=== PATIENT | female | born 1985 | race Caucasian/White ===

== ENCOUNTER → 2016-09-15 | Outpatient (REF) | payer MEDICAID ==
[~2016-09-15] MED LIST: CELE20TA OR; NO MEDS AT HOME; TRAZ50TA OR
== END ==
LOC: M LAB REF 12:43
PROVIDERS: ATTEND Advanced Practice Midwife
DX: Z34.83 Encounter for supervision of other normal pregnancy, third trimester (principal)

== ENCOUNTER 2016-09-21 13:38 | Inpatient (IN) | payer MEDICAID ==
[2016-09-21] VITALS (9 sets, daily range): BP systolic 92–109; BP diastolic 61–73
[~2016-09-21] VITALS: Ht 154.9 cm; Wt 52.0 kg
[~2016-09-21 13:38] MED LIST changes: -ACET50TA PO; -FLINCHW9 PO; -IBUP-1114 PO; -WELLTAB40 PO
[2016-09-21] MEDS ORDERED: FLINCHW9 PO (14:05)
[2016-09-21] MEDS ORDERED: LACTATED RINGER'S 1000 ML IV STA (14:19)
[2016-09-21] MEDS ORDERED: LR 1,000 ML IV SCH (14:19)
[2016-09-21] MEDS ORDERED: OXYTOCIN DRIP 30 UNITS in APPROPRIATE DILUENT 1 EA IV SCH (15:00)
[2016-09-21] MEDS ORDERED: CALCIUM CARBONATE 500 MG CHEW U/D PO PRN (19:45)
[2016-09-21] MEDS ORDERED: FENTANYL 2MCG/ML ROPIVACAINE 0.2% IN 0.9% NACL 200ML IVBAG As Ordered ONE (22:46)
[2016-09-21] MEDS ORDERED: NALOXONE INJ 0.4 MG/1 ML VIAL (J2310) IV PRN (23:45)
[2016-09-21] MEDS ORDERED: LACTATED RINGER'S 1000 ML IV PRN (23:45)
[2016-09-21] MEDS ORDERED: FENTANYL/ROPIVACAINE/NACL BAG 200 ML EPIDURAL SCH (23:45)
[2016-09-21] MEDS ORDERED: ONDANSETRON 4MG/2ML VIAL (J2405) IV PRN (23:45)
[2016-09-21] MEDS ORDERED: REFRIGERATOR IV KEYS XX PRN (23:45)
[2016-09-21] MEDS ORDERED: EPIDURAL/PCA KEYS XX PRN (23:45)
[2016-09-21] MEDS ORDERED: ePHEDrine SULFATE 25 MG/5 ML(5MG/ML) SYRINGE IV PRN (23:45)
[2016-09-21] MEDS ORDERED: diphenhydrAMINE INJ 50MG/ML VIAL (J1200) IV PRN (23:45)
[2016-09-21] MEDS ORDERED: EPIDURAL COMMENT XX SCH (23:45)
[2016-09-22] MEDS ORDERED: OXYTOCIN DRIP 30 UNITS in APPROPRIATE DILUENT 1 EA IV SCH (02:35)
[2016-09-22] MEDS: LR 1,000 ML IV SCH ×3 (02:35→18:35)
[2016-09-22] MEDS ORDERED: MEASLES,MUMPS,RUBELLA VACCINE INJ (MMR-II) (90707) SC SCH (02:45)
[2016-09-22] MEDS ORDERED: ACETAMINOPHEN 500 MG TAB PO PRN (02:45)
[2016-09-22] MEDS ORDERED: DIBUCAINE 1% OINTMENT 30GM TOP PRN (02:45)
[2016-09-22] MEDS ORDERED: DOCUSATE SODIUM 100 MG CAP PO PRN (02:45)
[2016-09-22] MEDS ORDERED: RHOGAM 300 MCG (1500 IU) INJ (J2790) IM SCH (02:45)
[2016-09-22] MEDS ORDERED: PROMETHAZINE 25 MG TAB PO PRN (02:45)
[2016-09-22] MEDS ORDERED: ONDANSETRON 4MG/2ML VIAL (J2405) IV PRN (02:45)
[2016-09-22] MEDS: IBUPROFEN 800 MG TAB PO PRN ×2 (03:27→18:10)
[2016-09-22 06:03] VITALS: BP 105/64
[2016-09-22] MEDS: PRENATAL VITAMIN TAB PO SCH (08:15)
[2016-09-22] MEDS: buPROPion **XL** TABLET 150MG (WELLBUTRIN XL) PO SCH (09:00)
[2016-09-22 18:10] VITALS: BP 108/70
[2016-09-23] MEDS: IBUPROFEN 800 MG TAB PO PRN (02:11)
[2016-09-23 05:54] VITALS: BP 106/63
[2016-09-23] MEDS ORDERED: ACET50TA PO (08:27)
[2016-09-23] MEDS ORDERED: WELLTAB40 PO (08:27)
[2016-09-23] MEDS ORDERED: IBUP-1114 PO (08:27)
[2016-09-23] MEDS: buPROPion **XL** TABLET 150MG (WELLBUTRIN XL) PO SCH (08:56)
[2016-09-23] MEDS: PRENATAL VITAMIN TAB PO SCH (08:56)
== END 2016-09-23 09:30 | disposition home or self-care (01) | DRG 560 ==
LOC: M LDI 13:38 → M OBS 09-22 03:44
PROVIDERS: ADMIT Obstetrics & Gynecology; ATTEND Obstetrics & Gynecology
PROC: 10E0XZZ Delivery of Products of Conception, External Approach (ICD-10-PCS; principal; 2016-09-22)
DX: O41.03X0 Oligohydramnios, third trimester, not applicable or unspecified (principal); F17.200 Nicotine dependence, unspecified, uncomplicated; Z37.0 Single live birth; Z3A.39 39 weeks gestation of pregnancy; O09.33 Supervision of pregnancy with insufficient antenatal care, third trimester; Z91.19 Patient's noncompliance with other medical treatment and regimen; O99.334 Smoking (tobacco) complicating childbirth

== ENCOUNTER → 2016-09-21 | Outpatient (CLI) | payer MEDICAID ==
[~2016-09-21] MED LIST changes: +ACET50TA PO; +FLINCHW9 PO; +IBUP-1114 PO; +WELLTAB40 PO
--- NOTE | 2016-09-21 12:50 | REP ---
LIMITED OB ULTRASOUND: 09/21/2016. Comparison: 08/03/2016, 05/13/2016. Clinical history: supervision of normal , third trimester oligohydramnios. Findings: A single intrauterine gestation in vertex position noted. There is no anterior grade 1 placenta without previa or abruption. Amniotic fluid volume is visually low. The index measurement today is 3.5 cm with a normal range 7.2 - 22.1. The largest of two fluid pockets is 2.8 cm.. Mid cord umbilical artery Doppler SD ratio 2.3 with normal forward diastolic flow and resistive index of 0.58, all normal. The umbilical cord drapes over the neck but cannot be seen to definitely wrap around the neck. No anatomic survey requested or performed at this time. biometry: BPD 3.9 cm 36 weeks 1 day HC 32.4 cm 36 weeks 5-day. AC 33 cm 39-waoo-9-day FL 7.4 cm 38 weeks Average ultrasound age by today's study 36 weeks 6 days. EDC 10/13/2016. By initial ultrasound she is 39 weeks 3 days, EDC 09/25/2016. Estimated weight III 104 grams or 6 pounds 13 ounces is 28th percentile based on initial dating. Estimated weight 32nd percentile in July. heart rate 144 and regular. Biophysical profile: Breathin Tone: 2 Movement: 2 AFV: 0 BPP /8. Impression: 1. Oligohydramnios with ANGELITO is 3.5. 2. Normal cord Doppler. heart rate 144. 3. Average ultrasound age 36 weeks 6 days today, by initial ultrasound 39 weeks 3 days. Estimated weight today at the 28 percentile based on initial exam. Previous study at 32nd percentile. 4. Biophysical profile score 6/8. Signed by Tmeo Zhou MD 09/21/2016 12:42 P
[2016-09-21 14:03] LABS: BASO % 0.8 % (0.0-1.0); EOS # 0.1 K/mm3 (0.0-0.50); EOS % 1.6 % (0.0-3.0); LARGE UNSTAINED CELL # 0.1 K/mm3 (0.0-0.4); LARGE UNSTAINED CELL % 1.6 % (0.0-4.0); LYMPH % 27.5 % (24.0-44.0); MEAN CORPUSCULAR HEMOGLOBIN 30.8 pg (27.0-33.0); MEAN CORPUSCULAR VOLUME 90.4 fl (80.0-96.0); MONO # 0.3 K/mm3 (0.0-0.8); MONO % 4.1 % (0.0-5.0); NEUTROPHILS # 4.6 K/mm3 (1.8-7.7); NEUTROPHILS % 64.3 % (36.0-66.0); PLATELET COUNT, AUTOMATED 307 k/mm3 (150-450); RED CELL DISTRIBUTION WIDTH 13.6 % (11.5-14.5)
[2016-09-22 08:27] LABS: WHITE BLOOD COUNT 7.2 K/mm3 (4.0-10.0)
[2016-09-22 08:28] LABS: HBsAg Prenatal NEGATIVE (NEGATIVE)
== END ==
LOC: M SMT 10:55
PROVIDERS: ATTEND Advanced Practice Midwife
DX: Z34.83 Encounter for supervision of other normal pregnancy, third trimester (principal); O41.03X1 Oligohydramnios, third trimester, fetus 1; Z3A.39 39 weeks gestation of pregnancy

== ENCOUNTER → 2018-01-21 | Outpatient (REF) | payer OTHER ==
[2018-01-21 16:40] LABS: HEMOGLOBIN 12.5 g/dl (12.0-15.5); MEAN CORPUSCULAR HEMOGLOBIN 28.9 pg (27.0-33.0); MEAN CORPUSCULAR HGB CONC 32.9 g/dl (32.0-36.5); MEAN CORPUSCULAR VOLUME 87.8 fl (80.0-96.0); PLATELET COUNT, AUTOMATED 371 10^3/uL (150-450); RED BLOOD COUNT 4.33 10^6/uL (4.00-5.40); RED CELL DISTRIBUTION WIDTH 12.6 % (11.5-14.5); WHITE BLOOD COUNT 6.3 10^3/uL (4.0-10.0)
[2018-01-21 17:03] LABS: ANION GAP 6 MEQ/L (8-16); BLOOD UREA NITROGEN 11 MG/DL (7-18); CALCIUM LEVEL 8.8 MG/DL (8.5-10.1); CARBON DIOXIDE LEVEL 30 MEQ/L (21-32); CHLORIDE LEVEL 106 MEQ/L (98-107); CREATININE FOR GFR 0.52 MG/DL (0.55-1.30); FREE T4 0.77 NG/DL (0.76-1.46); GLOMERULAR FILTRATION RATE > 60.0 (>60); GLUCOSE, FASTING 66 MG/DL (70-100); POTASSIUM SERUM 4.4 MEQ/L (3.5-5.1); SODIUM LEVEL 142 MEQ/L (136-145)
== END ==
LOC: M SFHCPLAZ 14:28
DX: R68.84 Jaw pain (principal); F41.8 Other specified anxiety disorders
CPT/HCPCS: 84443

== ENCOUNTER → 2018-01-27 | Outpatient (CLI) | payer OTHER ==
[~2018-01-27] MED LIST changes: -CELE20TA OR; +ISOVUE-370 76% 100ML VIAL (Q9967) As Ordered; -NO MEDS AT HOME; -TRAZ50TA OR
== END ==
LOC: M RAD 16:09
DX: R68.84 Jaw pain (principal)
CPT/HCPCS: Q9967